=== PATIENT | male | born 1940 | race Caucasian/White ===

== ENCOUNTER 2024-01-16 01:35 | Emergency (ER) | payer MEDICARE, BC, SELFPAY ==
[2024-01-16] VITALS (7 sets, daily range): BP systolic 147–178; BP diastolic 79–99
--- NOTE | 2024-01-16 02:04 | ED.GENMED ---
History of Present Illness
<NASREEN Gunderson (Lenka) - Last Filed: 01/16/24 04:53>
General
Chief Complaint: Fall
Source: patient and ambulance crew
Exam Limitations: dementia
Time Seen by Provider: 01/16/24 01:45
Nursing documentation reviewed up to this point in time: agreed with
History of Present Illness
History of Present Illness:
Pt is a primarily Luxembourger-speaking 83 yo male with PMHx of dementia, HTN, and prostate CA who presents to the ED after being found outside on the ground by police. Per Luxembourger engagement executive, pt states he left the house for a doctor's appointment,
thinking it was mid-afternoon. He claims he tripped over something on the ground, denies hitting head. Unknown length of time pt was on the ground for. Pt denies using a walker or cane at home. He is currently claiming 'everything hurts', worse in
his lower back. Admits to some dizziness on exam, denies any lightheadedness or dizziness prior to fall. States he is able to wiggle his toes and can feel them. Denies visual changes, tinnitus, head or neck pain, chest pain, difficulty breathing,
abdominal pain. No numbness or tingling.
Pt with hx of lower back pain.
Pt lives at home with .
No record of pt being on blood thinners.
Exam limited by patient mental status.
Past History
<Malorie Bahena) NASREEN Light - Last Filed: 01/16/24 04:53>
Past History
ED Past Medical History: Cancer (prostate), HTN and Psychiatric (dementia)
Social History
Personal:
Living: with family
Family History
Family History: Other (noncontributory)
Phy Exam
<NASREEN Gunderson (Lenka) - Last Filed: 01/16/24 04:53>
General Physical Exam
General Presentation: well appearing and no apparent distress
General age: appears stated age
General Skin: warm and dry
General Habitus: normal and elderly
General Mental: alert
General Hydration: appears well hydrated
ENT Exam
ENT Exam: EOMI, TM's normal and pharynx normal
Eye Exam
Eye Exam: EOMI and conjunctiva normal
Cardiovascular Exam
Cardiovascular Exam: regular rate/rhythm, no edema, no gallop and no murmur
Pulmonary Exam
Pulmonary Exam: lungs clear, no respiratory distress, no rales, no rhonchi, no wheezing and no cough
Gastrointestinal Exam
Gastrointestinal Exam: normal bowel sounds, non tender, soft and non distended
Neurological Exam
Neurological Exam: alert, speech normal and confused
Hildreth Coma Scale
Eye Opening: Spontaneous
Verbal Response: Confused
Motor Response: Obeys Commands
GCS Total Score: 14
Psychiatric Exam
Psychiatric Exam: normal mood/affect
<Shayne Monet DO - Last Filed: 01/16/24 03:11>
Hildreth Coma Scale
GCS Total Score: 14
Course
<ST Gunderson (Lenka)PA - Last Filed: 01/16/24 04:53>
Orders/Labs/Results
Orders:
Orders
01/16/24 01:53
CT Head W/o Iv Contrast Urgent
Comment:
Reason For Exam: unwitnessed fall
01/16/24 02:03
CT Cervical Spine W/o Iv Contr Urgent
Comment:
Reason For Exam: unwitnessed fall
Vital Signs
Initial and Last Documented VS:
Initial Vital Signs
Temp Pulse Resp BP Pulse Ox
98.7 F 70 18 178/79 98
01/16/24 01:42 01/16/24 01:42 01/16/24 01:42 01/16/24 01:42 01/16/24 01:42
Last Documented Vital Signs
Temp Pulse Resp BP Pulse Ox
98.7 F 61 13 154/98 95
01/16/24 01:42 01/16/24 02:45 01/16/24 02:45 01/16/24 02:43 01/16/24 02:45
<Shayne Monet DO - Last Filed: 01/16/24 03:11>
Orders/Labs/Results
Orders:
Orders
01/16/24 01:53
CT Head W/o Iv Contrast Urgent
Comment:
Reason For Exam: unwitnessed fall
01/16/24 02:03
CT Cervical Spine W/o Iv Contr Urgent
Comment:
Reason For Exam: unwitnessed fall
Vital Signs
Initial and Last Documented VS:
Initial Vital Signs
Temp Pulse Resp BP Pulse Ox
98.7 F 70 18 178/79 98
01/16/24 01:42 01/16/24 01:42 01/16/24 01:42 01/16/24 01:42 01/16/24 01:42
Last Documented Vital Signs
Temp Pulse Resp BP Pulse Ox
98.7 F 61 13 154/98 95
01/16/24 01:42 01/16/24 02:45 01/16/24 02:45 01/16/24 02:43 01/16/24 02:45
<NASREEN Gunderson (Lenka) - Last Filed: 01/16/24 04:53>
*Critical Care Note
Total Time (30-74mins, 75-104mins- exclusive of procedures): Not Applicable
<DO Say Napoles Last Filed: 01/16/24 03:11>
Update Note
Update Note:
CT HEAD
CT C SPINE
Comparison: 06/11/2022.
IMPRESSION:
CT HEAD
No acute intracranial hemorrhage, mass effect, or midline shift.
No acute calvarial fracture.
Moderate dilatation of the ventricles, out of proportion to the degree of atrophy. This is similar compared to the prior. Correlate for signs of normal pressure hydrocephalus.
CT C SPINE
No acute fracture or alignment abnormality.
Moderate degenerative changes.
Straightening of the cervical spine may be due to positioning or muscle spasm.
ED Attending Note
<NASREEN Gunderson (Lenka) - Last Filed: 01/16/24 04:53>
-
Portions of this chart may have been created with voice recognition software.� Occasional wrong word or��sound alike� substitutions may have occurred due to the inherent limitations of voice recognition software.
<Shayne Monet DO - Last Filed: 01/16/24 03:11>
ED Attending Note
Patient seen and examined by attending physician: Yes
I performed the substantive portion of visit, reviewed & personally made and approve the management plan that is documented in note by myself or WANDER.: Yes
ED Attending Note:
Pleasantly demented 83-year-old Luxembourger speaking male who presents via ambulance after being found outside his house on the ground. Patient does have a history of dementia. Patient awakened thinking that he was late for doctor's appointment and
attempted to go to his car. Patient lives at home with his . He has had this behavior in the past. Patient was seen in conjunction with the PA student. I have reviewed and agree with the history and treatment plan presented. On my
independent physical exam, patient is awake, at baseline. Able to converse fluently in Luxembourger, with a Luxembourger speaking nurse.
Discharge Plan
Departure
Patient Disposition: Home (Routine Discharge)
Date of Disposition: 01/16/24
Time of Disposition: 03:11
Patient with high blood pressure during this ER visit?: Yes
Discharge Problem:
Head injury, Fall
Instructions: Head Injury in Adults (DC), Preventing falls in adults
Prescriptions:
No Action
bicalutamide 50 mg Tablet
50 mg PO UD
Patient Comments:
06/11/21 PER PATIENT DAUGHTER HE WAS TAKING ONE WEEK ON ONE WEEK OFF
Rx Instructions:
06/11/21 PER PATIENT DAUGHTER HE WAS TAKING ONE WEEK ON ONE WEEK OFF
metoprolol succinate 100 mg tablet extended release 24 hr
100 mg PO DAILY
fluticasone propionate 50 mcg/actuation [place],Suspension
1 spray INTRANASAL BIDPRN PRN (Reason: CONGESTION)
potassium citrate 15 mEq tablet extended release
15 meq PO BID
amlodipine 5 mg Tablet
10 mg PO DAILY Qty: 0 0RF
cefdinir 300 mg Capsule
300 mg PO Q12 Qty: 6 0RF
Referrals:
Francisco Queen, DO [Family Provider] -
Interventions
Interventions:
*Risk Screen - Suicide Last Done: 01/16/24 01:42
*General Assessment Last Done: 01/16/24 01:42
*Neglect/Abuse Screening Last Done: 01/16/24 01:42
ED- Fall Risk Assessment Last Done: 01/16/24 01:42
ED-Musculoskeletal Assessment Last Done: 01/16/24 02:00
ED- Neurological Assessment Last Done: 01/16/24 02:00
ED-Skin Assessment Last Done: 01/16/24 02:00
Discharge Date and Time
Print Language: UGANDAN
== END 2024-01-16 05:40 | disposition home or self-care (01) ==
LOC: EMR 01:35
PROVIDERS: EMERGENCY PHYSICIAN Student in an Organized Health Care Education/Training Program; FAMILY PHYSICIAN Family Medicine
DX: S09.90XA Unspecified injury of head, initial encounter (principal); R42 Dizziness and giddiness; W18.00XA Striking against unspecified object with subsequent fall, initial encounter; F03.90 Unspecified dementia, unspecified severity, without behavioral disturbance, psychotic disturbance, mood disturbance, and anxiety; I10 Essential (primary) hypertension; Z85.46 Personal history of malignant neoplasm of prostate
CPT/HCPCS: 99284; 70450; 72125

== ENCOUNTER 2024-02-21 23:48 | Inpatient (IN) | payer MEDICARE, BC, SELFPAY ==
[2024-02-21 19:52] VITALS: BP 174/96
[2024-02-21 19:53] VITALS: BP 174/96
[2024-02-21 20:03] LABS: % Basophils 0.2 % (0-2); % Eosinophils 0.1 % (0-6); % Immature Granulocytes 0.4 % (0-0.5); % Lymphocytes 10.1 % (20.5-51.1); % Monocytes 7.5 % (1.7-9.3); % Neutrophils 81.7 % (42.2-75.2); Absolute Immature Granulocytes 0.1 10^3/uL (0-0.05); Absolute Lymphocytes 1.5 10^3/uL (1.2-3.4); Absolute Monocytes 1.2 10^3/uL (0.1-0.6); Absolute Neutrophils 12.5 10^3/uL (1.4-6.5); Hematocrit 43.4 % (39.0-52.0); Hemoglobin 15.6 g/dL (13.0-18.0); Mean Corp Hgb Conc. 35.9 g/dL (33.0-37.0); Mean Corpuscular Hgb 31.7 pg (27.0-31.0); Mean Corpuscular Volume 88.2 fL (80.0-94.0); Mean Platelet Volume 9.8 fL (7.4-10.4); Nucleated Red Blood Cells % 0 % (-); Platelet Count 161 10^3/uL (130-400); Red Blood Cell Count 4.92 10^6/uL (4.70-6.10); Red Cell Dist. Width 12.3 % (11.5-14.5); White Blood Cell Count 15.3 10^3/uL (4.8-10.8)
[2024-02-21 20:08] LABS: Urine Albumin 1+ (Neg - Trace); Urine Bilirubin Negative (Negative); Urine Character Slightly Cloudy (Clear); Urine Color Yellow; Urine Glucose Negative (Negative); Urine Ketone Trace (Negative); Urine Leukocyte 2+ (Negative); Urine Nitrite Positive (Negative); Urine Occult Blood 4+ (Negative); Urine Urobilinogen Negative (Neg - 1+)
[2024-02-21 20:11] VITALS: BP 174/101
[2024-02-21 20:19] LABS: ALT (SGPT) 14 U/L (0-50); AST (SGOT) 29 U/L (17-59); Albumin 4.1 g/dl (3.5-5.0); Alkaline Phosphatase 76 U/L (38-126); Blood Urea Nitrogen 20 mg/dl (9-20); Calcium 9.3 mg/dl (8.4-10.2); Carbon Dioxide 19 mmol/L (22-30); Chloride 106 mmol/L (98-107); Glucose 137 mg/dl (70-99); Potassium 4.3 mmol/L (3.5-5.1); Sodium 140 mmol/L (135-145); Total Bilirubin 1.4 mg/dl (0.2-1.3); Total Protein 7.3 g/dl (6.3-8.2); eGFR > 60.00
[2024-02-21 20:35] LABS: Urine Bacteria Moderate (Negative); Urine Red Blood Cell 21-25 /HPF (0-2); Urine White Cell >100 /HPF (0-5)
[2024-02-21] MEDS: NSS 1000 IV (21:22)
[2024-02-21] MEDS: MAXIPIME 2000 MG IV (21:27)
[2024-02-21 21:43] LABS: Lactic Acid 1.1 mmol/L (0.7-2.0)
--- NOTE | 2024-02-21 22:16 | ED.GENMED ---
History of Present Illness
General
Chief Complaint: Change in Mental Status
Time Seen by Provider: 02/21/24 21:10
History of Present Illness
History of Present Illness:
83-year-old male with history of hypertension, prostate CA with chronic indwelling Mehta, dementia presenting to the emergency department for change in mental status and increased confusion. Patient limited historian, speaks Swazi, however despite
foreign language interpreter, not answering questions appropriately. Per , patient seemed increasingly confused, and has had a urinary tract infections in the past. Per daughter, a Mehta catheter was exchanged this morning, concern for blockage over the night
with decreased drainage. She notes that patient has overall been less responsive and more confused, more fidgety. No reported fevers. No additional history obtained at this time
Past History
Past History
ED Past Medical History: Cancer (prostate), HTN and Psychiatric (dementia)
Social History
Personal:
Living: with family
Family History
Family History: Other (noncontributory)
Phy Exam
Physical Exam
Physical Exam:
General: Well-appearing, no clinical signs of dehydration, nontoxic and in no acute distress
HEENT: protecting airway
Neck: appears supple
CV: Normal heart rate, regular rhythm, no evidence of cyanosis
Resp: No accessory muscle use, no increased work of breathing, lungs clear to auscultation bilaterally
Abd: Soft, generalized nonfocal tenderness.
Extremities: No deformities, no swelling, no erythema, pulses and sensation intact
Neuro: alert, oriented to self only
: Indwelling Mehta, cloudy yellow urine
Rectal: deferred
Psych: Normal affect
Skin: Intact
Sepsis
Sepsis Screening
Sepsis Assessment: Sepsis
Sepsis Screen
Sepsis Screen: Sepsis
Date: 02/21/24
Time: 23:29
Course
Orders/Labs/Results
Orders:
Orders
02/21/24 19:53
CMP [Comprehensive Metabolic Panel] Urgent
Complete Blood Count/With Diff Urgent
Urinalysis Reflex To Culture Urgent
Date Specimen was Collected: 02/21/24
Time Specimen was Collected: 19:51
Urine Microscopic Reflex Cult Urgent
Urine Culture Urgent
VIKRAM Source: U
Specimen Description:
Date Specimen was Collected: 02/21/24
Time Specimen was Collected: 19:51
02/21/24 21:15
0.9% Sodium Chloride 1000 ml [Nss] 1,000 ml IV BOLUS
02/21/24 21:17
CT Abd/pelvis W Iv Cont Urgent
Comment:
Reason For Exam: generalized pain
Cefepime HCl [Maxipime] 2,000 mg IV NOW STA
02/21/24 21:22
Lactic Acid Urgent
Blood Culture Urgent
VIKRAM Source: Blood/Venous
Specimen Description:
02/21/24 23:25
Blood Culture Urgent
VIKRAM Source: Blood/Venous
Specimen Description:
Metoprolol [Lopressor] 5 mg IV NOW STA
Abnormal Lab Results
02/21/24
19:53
WBC 15.3 H 10^3/uL
(4.8-10.8)
MCH 31.7 H pg
(27.0-31.0)
Abs Immat Gran (auto) 0.1 H 10^3/uL
(0-0.05)
Absolute Neuts (auto) 12.5 H 10^3/uL
(1.4-6.5)
Absolute Monos (auto) 1.2 H 10^3/uL
(0.1-0.6)
Neutrophils % 81.7 H %
(42.2-75.2)
Lymphocytes % 10.1 L %
(20.5-51.1)
Carbon Dioxide 19 L mmol/L
(22-30)
Glucose 137 H mg/dl
(70-99)
Total Bilirubin 1.4 H mg/dl
(0.2-1.3)
Urine Ketones Trace A
(Negative)
Ur Occult Blood Reflex 4+ A
(Negative)
Urine Nitrite (Reflex) Positive A
(Negative)
Leukocyte Esterase Rfl 2+ A
(Negative)
Urine RBC 21-25 A /HPF
(0-2)
Urine WBC (Reflex) >100 A /HPF
(0-5)
Urine Bacteria (Reflex) Moderate A
(Negative)
Urine Albumin (Reflex) 1+ A
(Neg - Trace)
02/21/24 19:53
02/21/24 19:53
Vital Signs
Initial and Last Documented VS:
Initial Vital Signs
Temp Pulse Resp BP Pulse Ox
99.8 F 100 24 174/96 99
02/21/24 19:52 02/21/24 19:52 02/21/24 19:52 02/21/24 19:52 02/21/24 19:52
Last Documented Vital Signs
Temp Pulse Resp BP Pulse Ox
99.8 F 104 24 164/91 93
02/21/24 19:53 02/21/24 23:15 02/21/24 23:15 02/21/24 22:36 02/21/24 23:15
MDM/Problems Addressed
MDM/Problems Addressed:
83-year-old male with history of dementia, prostate cancer with chronic indwelling Mehta, hypertension presenting for altered mental status. Vital signs on arrival significant for high blood pressure and elevated heart rate.
On exam, patient is nontoxic, no acute distress. Given family's concerns and information, concern for possible urinary tract infection. Will obtain laboratory analysis including lactic acid given presenting tachycardia, low-grade temperature.
Will check urinalysis. Given limited historian and generalized tenderness to abdomen, will also obtain CT abdomen pelvis to assess for any additional source of intra-abdominal pathology/infection.
21:40 - Patient with leukocytosis, however normal lactic acid. No hypotension, without concern for severe sepsis or septic shock. No indication for full 30 cc/kg fluid bolus. Urine does show evidence of action, Mehta catheter change this morning.
Will start antibiotics. Urine culture and blood culture sent. Pending CT imaging.
23:10 -CT shows a 3 mm stone at the right UVJ without significant hydronephrosis, however there is some perinephric stranding. Differential consideration is infected renal stone. Urology made aware. Plan for admission.
*Critical Care Note
Total Time (30-74mins, 75-104mins- exclusive of procedures): Not Applicable
ED Attending Note
-
Portions of this chart may have been created with voice recognition software.� Occasional wrong word or��sound alike� substitutions may have occurred due to the inherent limitations of voice recognition software.
Discharge Plan
Departure
Patient Disposition: Admit
Date of Disposition: 02/21/24
Time of Disposition: 23:18
Presentation/result/management discussed w/ accepting MD/DO: Hospitalist
Condition: Fair
Discharge Problem:
UTI (urinary tract infection), Nephrolithiasis, Acute pyelonephritis
Prescriptions:
No Action
bicalutamide 50 mg Tablet
50 mg PO Q48H
Patient Comments:
06/11/21 PER PATIENT DAUGHTER HE WAS TAKING ONE WEEK ON ONE WEEK OFF
metoprolol succinate 100 mg tablet extended release 24 hr
100 mg PO DAILY
fluticasone propionate 50 mcg/actuation [place],Suspension
1 spray INTRANASAL BID
potassium citrate 15 mEq tablet extended release
15 meq PO BID@0800,1700
quetiapine 25 mg tablet
25 mg PO HS
B Complex Tablet Extended Release
1 tab PO Q48H
donepezil 5 mg tablet
5 mg PO HS
famotidine 20 mg tablet
20 mg PO DAILYPRN PRN (Reason: gi)
mirabegron [Myrbetriq] 25 mg Tablet Extended Release 24 Hr
25 mg PO DAILY
calcium carb-mag ox-zinc gluc 333-133-5 mg Tablet
1 tab PO Q48H
Referrals:
UNKNOWN - PT DOES,NOT KNOW [Family Provider] -
Interventions
Interventions:
*Risk Screen - Suicide Last Done: 02/21/24 19:52
*General Assessment Last Done: 02/21/24 19:52
*Neglect/Abuse Screening Last Done: 02/21/24 19:52
*ED COVID-19 Vaccine History Last Done: 02/21/24 19:52
ED- Pulmonary Assessment Last Done: 02/21/24 20:00
ED-Psychological Assessment Last Done: 02/21/24 20:52
ED- Neurological Assessment Last Done: 02/21/24 20:06
Discharge Date and Time
Print Language: ECUADOREAN
[2024-02-21 22:36] VITALS: BP 164/91
[2024-02-21 23:23] VITALS: BP 165/115
--- NOTE | 2024-02-21 23:27 | HPS.HSE ---
Family Physician
-
Family Physician: NOT KNOW UNKNOWN - PT DOES
Chief Complaint
-
AMS
History of Present Illness
83M dementia and prostate CA history with chronic indwelling ty coming in with change in mental status per family.
Reports history of frequent UTIs
Medical History
Past Medical History
Past Medical History: Reports Dementia and HTN
Past Surgical History: Reports None
Social History
Tobacco: Non-smoker
Alcohol: None
Personal:
Living: With Family
Family History
Family History: Not pertinent
Allergies / Home Medications
Allergies reflects when Allergies were last updated in [facility].
Home Medications with original date entered in [facility]
Allergy/Medication List:
Allergies
Allergy/AdvReac Type Severity Reaction Status Date / Time
No Known Allergies Allergy Verified 02/21/24 19:59
Home Medications
bicalutamide 50 mg tablet 50 mg PO Q48H 06/11/22
fluticasone propionate 50 mcg/actuation nasal spray,suspension 1 spray intranasal BID 06/11/22
metoprolol succinate 100 mg tablet,extended release 24 hr 100 mg PO DAILY Blood pressure 06/11/22
potassium citrate 15 mEq (1,620 mg) tablet,extended release 15 meq PO BID@0800,1700 Electrolyte Repletion 06/11/22
calcium carbonate 333 mg-magnesium oxide 133 mg-zinc gluc 5 mg tablet 1 tab PO Q48H 02/21/24
donepezil 5 mg tablet 5 mg PO HS 02/21/24
famotidine 20 mg tablet 20 mg PO DAILYPRN PRN gi 02/21/24
mirabegron 25 mg tablet,extended release 24 hr (Myrbetriq) 25 mg PO DAILY 02/21/24
quetiapine 25 mg tablet 25 mg PO HS 02/21/24
vitamin B complex 1 tab PO Q48H 02/21/24
Review of Systems
-
Constitutional: Reports No Symptoms
EENT: Reports No Symptoms
Respiratory: Reports No Symptoms
Cardiac: Reports No Symptoms
Abdomen/GI: Reports No Symptoms
: Reports No Symptoms
Musculoskeletal: Reports Other (right lower back pain)
Skin: Reports No Symptoms
Neurological: Reports See HPI
Endocrine: Reports No Symptoms
Hematologic/Lymphatic: Reports No Symptoms
Psych: Reports No Symptoms
Physical Exam
Vital Signs
Vital Signs
Temp Pulse Resp BP Pulse Ox
99.8 F 104 24 164/91 93
02/21/24 19:53 02/21/24 23:15 02/21/24 23:15 02/21/24 22:36 02/21/24 23:15
Physical Exam
General: Other (lethargic ); No Conversant
HEENT: NormoCephalic, Moist mucous membranes (dry) and Atraumatic
Respiratory: Clear
Cardiac: S1/S2, Regular Rhythm and Tachycardia; No Murmur or Rub
GI: Soft, Non Tender, Non Distended and Normal Bowel Sounds; No Organomegaly
Rectal: Deferred by Provider
Musculoskeletal: No Clubbing, No Cyanosis and No Edema
Skin: Dry; No Rash
Neuro: Nonfocal/grossly intact; No Alert (lethargic )
Psych: Apparent Dementia (lethargic )
Laboratory Results
-
02/21/24 19:53
02/21/24 19:53
Laboratory Results
Lactic Acid 1.1 mmol/L (0.7-2.0) 02/21/24 21:22
Total Bilirubin 1.4 mg/dl (0.2-1.3) H 02/21/24 19:53
AST 29 U/L (17-59) 02/21/24 19:53
ALT 14 U/L (0-50) 02/21/24 19:53
Alkaline Phosphatase 76 U/L (38-126) 02/21/24 19:53
Data Reviewed
-
CT Scan: Report Reviewed by me
Lab Data: Labs Reviewed by me
Old Records: Reviewed
Impression/Plan
-
:
Data
WCC 15.3
CO2 19
eGFR > 60
BG 137
POS UA for UTI
CT AP W Iv Cont
1).There is a 3 mm calculus at the intramural portion of the right ureterovesical junction without significant associated right hydronephrosis or right hydroureter
2). There is a 2 cm calculus at the right renal pelvis without associated right hydronephrosis.
3). There is mild-moderate cortical volume loss of the right kidney
4). There is mild left and moderate right perinephric edema
5). There are left-sided renal cysts measuring up to 2 cm
6). There are multiple calculi in the dependent portion of the urinary bladder measuring up to 4 mm
Last hospitalist admission:
DATE OF ADMISSION: 06/11/2022 - DATE OF DISCHARGE: 06/17/2022
DISCHARGE DIAGNOSIS:
1. Toxic metabolic encephalopathy.
2. Urinary tract infection.
3. Underlying dementia.
4. Ambulatory dysfunction.
ASSESSMENT & PLAN
Suspect CAUTI plis infected stone - complicated UTI : Preserved normotensive , tachycardic
Clinical sepsis
AMS/ lethargy due to acute hypoactive infective encephalopathy 2/2 to infected 2 cm calculus at the right renal pelvis
No right hydronephrosis.
Chr indwelling F Cath
HX Prostate CA
- cont, IV CFP
- UCx and BCx sent
- NPO and IVF
- PRN analgesia
- Urology consulted
HX Dementia
At risk for agitation
- IV Haldol PRN for agitation
DVT Px: SCD
Code: Full code
IP TLM
[2024-02-21] MEDS: LOPRESSOR 5 MG IV (23:33)
[2024-02-21] MEDS: OFIRMEV 100 IV (23:42)
[2024-02-22] VITALS (9 sets, daily range): BP systolic 103–150; BP diastolic 60–88; PULSE 80; BMI 25.7; BMI 25.6
[2024-02-22] MEDS: NSS 1000 IV ×2 (00:20→08:36)
[2024-02-22] MEDS: COMPAZINE 5 MG IV (00:37)
--- NOTE | 2024-02-22 04:10 | PTCARENOTE ---
Pt admitted to room 2127 from ED via stretcher, pt primary language is Kinyarwanda, does not understand Eritrean or answer card boxer's questions d/t his dementia?, no family member at bedside at the time of admission. Bed alarm in place and med sitter
provided for pt. call christie within reach.
--- NOTE | 2024-02-22 04:20 | DOWNTIME ---
There was a [employer] Client [employer] Knife [employer]immer Downtime on 02/22/2024 from 0100 to 02/22/2024 at 0300. Downtime documentation of patient's care, including medication administrations, has been reconciled in the electronic record per guidelines. Refer to the
patient's paper chart under the miscellaneous tab to see printed paper medication records and downtime forms.
[2024-02-22 06:16] LABS: Hematocrit 37.2 % (39.0-52.0); Hemoglobin 13.5 g/dL (13.0-18.0); Mean Corp Hgb Conc. 36.3 g/dL (33.0-37.0); Mean Corpuscular Hgb 31.3 pg (27.0-31.0); Mean Corpuscular Volume 86.3 fL (80.0-94.0); Mean Platelet Volume 9.9 fL (7.4-10.4); Platelet Count 131 10^3/uL (130-400); Red Blood Cell Count 4.31 10^6/uL (4.70-6.10); Red Cell Dist. Width 12.5 % (11.5-14.5); White Blood Cell Count 20.7 10^3/uL (4.8-10.8)
--- NOTE | 2024-02-22 06:35 | CON.MD ---
Addendum entered and electronically signed by Viktor Fischer Jr., MD 02/22/24 08:56:
spoke to daughter
she is declining any intervention at this time- wants to 'wait and see'
explained the risks of this with stone/infx and that when intervention is desired- he may not be stable enough to proceed
she understands- OR cancelled for today
Original Note:
Consultation - Medical
-
see dictated note
hx obtained from chart- pt non-communicative
pt followed by dr shabazz
chronic urinary retention/recurrent UTI's
known large right renal stone
presumptive prostate ca- based on psa elevation- treatment hormonal
brought in for AMS and cath not draining
ua appeared infected- had CT showing large paritally obstructing right renal pelvis stone- bladder stones and possible right uvj stone
overnight- several spiking temps- wbc up to 20k
pt currently af- stable- more awake and alert
plan
will discuss with family and dr shabazz
tentative plan for OR for right ureteral stent today
[2024-02-22 06:36] LABS: Blood Urea Nitrogen 21 mg/dl (9-20); Calcium 8.8 mg/dl (8.4-10.2); Carbon Dioxide 16 mmol/L (22-30); Chloride 109 mmol/L (98-107); Estimated Creatinine Clearance 40 ml/min; Glucose 132 mg/dl (70-99); Sodium 140 mmol/L (135-145); eGFR 54.85
--- NOTE | 2024-02-22 08:22 | VNURNOTE ---
Chart reviewed. Patient is current with [facility] nursing. Will continue to follow hospital course and DC plans.
[2024-02-22] MEDS: TOPROL XL 100 MG PO (08:34)
[2024-02-22] MEDS: MYRBETRIQ EXTENDED RELEASE 25 MG PO (08:35)
[2024-02-22] MEDS: UROCIT-K 10 MEQ PO ×2 (08:35→16:20)
[2024-02-22] MEDS: STERILE WATER FOR INJECTION 10 ML IV ×2 (09:55→21:39)
[2024-02-22] MEDS: MAXIPIME 2000 MG IV ×2 (09:55→21:39)
--- NOTE | 2024-02-22 13:28 | PTCARENOTE ---
Positive blood culture in progress. Forwarded to Dr. Sterling [id number] via tiger text. placed in chart
--- NOTE | 2024-02-22 14:00 | W.PN.HOSP.TC ---
Today's Communication/Plan
-
IV antibiotics
IV fluids per
Follow cultures
Assessment / Plan
Assessment / Plan
Impression:
Complicated catheter associated urinary tract infection.
Clinical sepsis.
Gram-negative bacteremia
BPH with chronic bladder outlet obstruction and indwelling catheter
Presumed prostate carcinoma on Casodex prior to presentation
Toxic metabolic encephalopathy/G secondary to above
Essential hypertension
Dementia senile type
Chronic ambulatory dysfunction
Plan:
Complicated catheter associated urine tract infection in patient with indwelling catheter.
Gram-negative bacteremia.
Urine cultures pending.
Mehta catheter exchange at the day of presentation.
CT scan with 3 mm calculus at the intramural portion of the right ureterovesical junction without significant associated right hydronephrosis or right hydroureter, 2 cm calculus at the right renal pelvis without associated hydronephrosis
Initiated on empiric antibiotics cefepime.
Urology input appreciated with suggestion of cystoscopy and stent, although patient's daughter declined procedure at this point requesting conservative treatment including antibiotics and fluids.
Monitor closely while on cefepime.
Continue IV fluids.
Follow final blood and urine cultures.
Essential hypertension
Continue metoprolol monitoring for hypotension
Dementia senile type
No evidence for agitation or behavioral disturbances.
Supportive care.
Frequent reorientation
Avoid sedation.
Continue Aricept, Seroquel
Full code
DVT prophylaxis heparin
Anticipated Discharge: > 48 hours
Subjective/Interval History
-
Date of Service: February 22, 2024
Objective Data
-
Labs:
Laboratory Results
02/22/24
05:53
WBC 20.7 H
Hgb 13.5
Hct 37.2 L
Plt Count 131
Sodium 140
Potassium 4.0
Chloride 109 H
Carbon Dioxide 16 L
BUN 21 H
Creatinine 1.3
Glucose 132 H
Calcium 8.8
Vital Signs:
Vital Signs
Temp Pulse Resp BP Pulse Ox
98.8 F 96 16 138/79 98
02/22/24 13:53 02/22/24 11:05 02/22/24 11:05 02/22/24 11:05 02/22/24 11:05
I&O
02/21/24 02/22/24 02/23/24
06:59 06:59 06:59
Intake Total 800 / 800
Balance 800 / 800
Physical Exam
-
General: Well Developed and No Apparent Distress
HEENT: Normocephalic, Atraumatic and Moist Mucous Membranes
Respiratory: Clear to Auscultation
Cardiac: Regular Rhythm and S1/S2; Negative Murmur, Rub or Gallop
GI: Soft, Nontender, Nondistended and Normal Bowel Sounds; Negative Organomegaly
Rectal: Deferred by Provider
Musculoskeletal: No Clubbing, No Cyanosis and No Edema
Skin: Negative Rash
Neuro: Awake, Alert, Oriented and Nonfocal/Grossly Intact
--- NOTE | 2024-02-22 16:29 | CM ---
TC to daughter Shaye for IA.
Patient lives with spouse in a 1 story home with 4 steps to enter.
Patient does not use assistive device inside the house, does use a walker outside.
Multiple falls, chronic Mehta catheter.
Patient speaks Latvian, confused.
Patient is current with [facility], daughter agreeable to resume.
Patient has been in [facility] in the past, daughter does ot want skilled rehab.
PCP; Dr Queen
Pharmacy: [facility]
[2024-02-22] MEDS: HEPARIN 5000 UNITS SC (20:04)
[2024-02-22] MEDS: ARICEPT 5 MG PO (21:39)
[2024-02-22] MEDS: SEROQUEL 25 MG PO (21:39)
[2024-02-23] MEDS: NSS 1000 IV ×3 (00:03→22:41)
[2024-02-23 02:54] VITALS: BP 163/85
[2024-02-23 07:01] VITALS: BMI 26.2
[2024-02-23 07:12] LABS: % Basophils 0.3 % (0-2); % Eosinophils 0.4 % (0-6); % Immature Granulocytes 0.5 % (0-0.5); % Lymphocytes 18.2 % (20.5-51.1); % Monocytes 7.3 % (1.7-9.3); % Neutrophils 73.3 % (42.2-75.2); Absolute Immature Granulocytes 0.1 10^3/uL (0-0.05); Absolute Monocytes 0.8 10^3/uL (0.1-0.6); Absolute Neutrophils 7.9 10^3/uL (1.4-6.5); Hematocrit 32.6 % (39.0-52.0); Hemoglobin 11.8 g/dL (13.0-18.0); Mean Corp Hgb Conc. 36.2 g/dL (33.0-37.0); Mean Corpuscular Hgb 31.9 pg (27.0-31.0); Mean Corpuscular Volume 88.1 fL (80.0-94.0); Mean Platelet Volume 10.9 fL (7.4-10.4); Nucleated Red Blood Cells % 0 % (-); Platelet Count 105 10^3/uL (130-400); Red Cell Dist. Width 12.8 % (11.5-14.5); White Blood Cell Count 10.8 10^3/uL (4.8-10.8)
[2024-02-23 07:42] LABS: Blood Urea Nitrogen 24 mg/dl (9-20); Calcium 8.1 mg/dl (8.4-10.2); Carbon Dioxide 15 mmol/L (22-30); Chloride 111 mmol/L (98-107); Estimated Creatinine Clearance 43 ml/min; Glucose 111 mg/dl (70-99); Potassium 3.5 mmol/L (3.5-5.1); Sodium 141 mmol/L (135-145); eGFR > 60.00
[2024-02-23 07:49] VITALS: BP 155/88
[2024-02-23] MEDS: MYRBETRIQ EXTENDED RELEASE PO (08:14)
[2024-02-23] MEDS: CASODEX 50 MG PO (08:16)
[2024-02-23] MEDS: HEPARIN 5000 UNITS SC ×2 (08:16→20:33)
[2024-02-23] MEDS: UROCIT-K PO ×4 (08:16→16:09)
[2024-02-23] MEDS: TOPROL XL 100 MG PO (08:16)
--- NOTE | 2024-02-23 08:46 | PTCARENOTE ---
speech eval and treat placed. Doctor Hallie notified. Pt struggled with am pills.
--- NOTE | 2024-02-23 09:00 | PTCARENOTE ---
Reached out to Dr. Fischer in Urology. Pt on list for OR today. Breakfast will not be given to patient. Dr. Warner to speak with daughter.
[2024-02-23] MEDS: MAXIPIME 2000 MG IV (09:11)
[2024-02-23] MEDS: STERILE WATER FOR INJECTION 10 ML IV (09:11)
--- NOTE | 2024-02-23 10:11 | W.PN.SURGUPD ---
Surgical Update
Surgical Update
Probable complicated UTI following chronic Mehta catheter exchange: Enterobacter in blood
Longstanding large right UPJ stone
---
Patient is responding to medical management
Low grade fever
Leukocytosis has resolved
No right flank pain, nausea or gross hematuria
No right perinephric stranding on CT scan
---
Discussed management with daughter
Will treat medically and not intervene with right renal stone at this time
Will reconsider if patient has multiple hospitalizations for the same issue in the coming months
[2024-02-23 11:50] VITALS: BP 132/69
--- NOTE | 2024-02-23 12:54 | PTOTSP ---
Speech Therapy Swallowing Assessment
Oral/pharyngeal swallow deemed within functional limits without overt signs of aspiration. Suspect dementia combined with acute illness is causing fluctuations in function and may be responsible for difficulty with med pass this am.
Recommend
1. Continue with regular solids and thin liquids
2. Pills whole in applesauce - especially if he has difficulty with future med passes
3. Fully upright with meals
4. Assist with feeding
ST will follow briefly to ensure diet tolerance and determine need for diet modifications and/or instrumental testing.
--- NOTE | 2024-02-23 13:29 | CM ---
Met with patient and daughter Shaye. IMM explained & signed. In chart
Discussed d/c planning
Would like JF with [facility]
Ambulance forms on chart.
PLAN: Discharge when stable to home with [facility].
--- NOTE | 2024-02-23 14:50 | CON.ID ---
Consultation
-
Date/Time Consultation Requested: 02/23/24 11:03
Date/Time Consultation Performed: 02/23/24 14:51
Requesting Provider: Dr Sterling
Performing Provider: Dr Catalan
Reason for Consultation: enterobacter uti
Chief Complaint / Past History
Chief Complaint
AMS
History of Present Illness
Mr Mattson is an 83 year old male with history of prostate cancer with chronic ty presented here on 02/20 for AMS. 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
Since arrival here tmax 102.1, bp stbale, wbc initially 15 and peaked at 20 now 10.8, hgb 11.8, plt 105, no current L shift, cr 1.2 from baseline of around 1.0, lactic acid 1.1, ua with >100 wbc/hpf, CT a/p with IV contrast: 2 and 3 cm uvj stones,
mild bilateral perinephric edema, urine culture 100 K GNR and blood culture enterobacter, currently on cefepime, ID is consulted for assistance with management.
Past History
Additional Past Medical History:
Dementia and HTN
Past Surgical History: None
Allergy History:
No Known Allergies Allergy (Verified 02/21/24 19:59)
Medications Reviewed: Yes
Social History
Tobacco: Non-Smoker
Alcohol: None
Drug: None
Family History
Family History: Not Pertinent
Review of Systems
Review of Systems
unable to obtain due to the condition of the patient
Vital Signs
Temp Pulse Resp BP Pulse Ox
99.6 F 78 16 132/69 93
02/23/24 11:50 02/23/24 11:50 02/23/24 11:50 02/23/24 11:50 02/23/24 11:50
Physical Exam
Physical Exam
Constitutional: No Acute Distress
Cardiovascular: Regular Rate and S1/S2; Negative Murmur or Rub
Pulmonary: Clear and Symmetric; Negative Wheezes, Rales or Rhonchi
Gastrointestinal: Soft, Non Tender, Non Distended and Normal Bowel Sounds
Genito-Urinary: Negative Suprapubic Tenderness or CVA Tenderness
Skin: Warm and Dry; Negative Rash or Jaundice
Lab / Diagnostic Study Results
02/23/24 06:13
02/23/24 06:13
Abs Immat Gran (auto) 0.1 10^3/uL (0-0.05) H 02/23/24 06:13
Absolute Neuts (auto) 7.9 10^3/uL (1.4-6.5) H 02/23/24 06:13
Absolute Lymphs (auto) 2.0 10^3/uL (1.2-3.4) 02/23/24 06:13
Absolute Monos (auto) 0.8 10^3/uL (0.1-0.6) H 02/23/24 06:13
Absolute Basos (auto) 0.0 10^3/uL (0-0.2) 02/23/24 06:13
Immature Gran % 0.5 % (0-0.5) 02/23/24 06:13
Neutrophils % 73.3 % (42.2-75.2) 02/23/24 06:13
Lymphocytes % 18.2 % (20.5-51.1) L 02/23/24 06:13
Monocytes % 7.3 % (1.7-9.3) 02/23/24 06:13
Eosinophils % 0.4 % (0-6) 02/23/24 06:13
Basophils % 0.3 % (0-2) 02/23/24 06:13
Lactic Acid Cancelled 02/22/24 17:15
Microbiology Results
Micro:
02/23/24 13:48 Blood Culture - Pending
Blood/Venous
02/21/24 21:22 Blood Culture - Preliminary
Blood/Venous Enterobacter species
Gram Stain - Preliminary
02/21/24 19:53 Urine Culture - Preliminary
Urine Gram negative bacilli
02/21/24 23:54 Blood Culture - Preliminary
Blood/Venous No Growth in 24 hours- Final report to follow
Assessment / Plan
Enterobacter UTI
- no need for repeat blood cultures for gram negative bacteremia
- follow for sensitivities
- switched to zosyn given isolate and persistent confusion - deescalate to orals when febrile
- follow clinically
[2024-02-23 15:10] VITALS: BP 147/45
[2024-02-23] MEDS: ZOSYN 50 IV ×2 (16:02→22:41)
--- NOTE | 2024-02-23 17:03 | W.PN.HOSP.TC ---
Today's Communication/Plan
-
Continue antibiotics
ID consultation
Assessment / Plan
Assessment / Plan
Impression:
Complicated catheter associated urinary tract infection.
Clinical sepsis.
Gram-negative bacteremia/Enterobacter
BPH with chronic bladder outlet obstruction and indwelling catheter
Presumed prostate carcinoma on Casodex prior to presentation
Toxic metabolic encephalopathy/G secondary to above
Essential hypertension
Dementia senile type
Chronic ambulatory dysfunction
Plan:
Complicated catheter associated urine tract infection in patient with indwelling catheter.
Gram-negative bacteremia. Enterobacter
Final urine cultures pending
Mehta catheter exchange at the day of presentation.
CT scan with 3 mm calculus at the intramural portion of the right ureterovesical junction without significant associated right hydronephrosis or right hydroureter, 2 cm calculus at the right renal pelvis without associated hydronephrosis
Initiated on empiric antibiotics cefepime.
Urology input appreciated with suggestion of cystoscopy and stent, although patient's daughter declined procedure at this point requesting conservative treatment including antibiotics and fluids.
ID consult appreciated
Antibiotic changed to Zosyn.
Follow clinically over the next 24 hours with plan to transition to oral regimen upon discharge tentatively on 02/23
Essential hypertension
Continue metoprolol monitoring for hypotension
Dementia senile type
No evidence for agitation or behavioral disturbances.
Supportive care.
Frequent reorientation
Avoid sedation.
Continue Aricept, Seroquel
Full code
DVT prophylaxis heparin
Anticipated Discharge: 24 - 48 hours
Subjective/Interval History
-
Date of Service: February 23, 2024
Objective Data
-
Labs:
Laboratory Results
02/23/24
06:13
WBC 10.8
Hgb 11.8 L
Hct 32.6 L
Plt Count 105 L
Sodium 141
Potassium 3.5
Chloride 111 H
Carbon Dioxide 15 L
BUN 24 H
Creatinine 1.2
Glucose 111 H
Calcium 8.1 L
Vital Signs:
Vital Signs
Temp Pulse Resp BP Pulse Ox
99.1 F 80 16 147/45 92
02/23/24 15:10 02/23/24 15:10 02/23/24 15:10 02/23/24 15:10 02/23/24 15:10
I&O
02/22/24 02/23/24 02/24/24
06:59 06:59 06:59
Intake Total 800 / 800
Output Total 600 / 600
Balance 800 / 800 -600 / -600
Physical Exam
-
General: Well Developed and No Apparent Distress
HEENT: Normocephalic, Atraumatic and Moist Mucous Membranes
Respiratory: Clear to Auscultation
Cardiac: Regular Rhythm and S1/S2; Negative Murmur, Rub or Gallop
GI: Soft, Nontender, Nondistended and Normal Bowel Sounds; Negative Organomegaly
Rectal: Deferred by Provider
Musculoskeletal: No Clubbing, No Cyanosis and No Edema
Skin: Negative Rash
Neuro: Awake, Alert, Oriented and Nonfocal/Grossly Intact
[2024-02-23 19:42] VITALS: BP 144/74
[2024-02-23] MEDS: SEROQUEL 25 MG PO (20:33)
[2024-02-23] MEDS: ARICEPT 5 MG PO (20:33)
[2024-02-23 23:50] VITALS: BP 170/97
[2024-02-24] MEDS: APRESOLINE 5 MG IV (00:45)
--- NOTE | 2024-02-24 00:47 | PTCARENOTE ---
Pt's BP at 23:50 was 170/97. Reached out to house provider. Orders received for 5mg hydralazine q4h PRN. Hydralazine administered, see AUG. Will reassess BP for efficacy.
[2024-02-24 01:57] VITALS: BP 152/94
[2024-02-24] MEDS: ZOSYN 50 IV (03:46)
[2024-02-24 03:54] VITALS: BP 165/98
[2024-02-24 07:05] VITALS: BP 167/99
[2024-02-24] MEDS: HEPARIN 5000 UNITS SC (08:44)
[2024-02-24] MEDS: MYRBETRIQ EXTENDED RELEASE 25 MG PO (08:44)
[2024-02-24] MEDS: TOPROL XL 100 MG PO (08:44)
[2024-02-24] MEDS: UROCIT-K 10 MEQ PO (08:46)
--- NOTE | 2024-02-24 09:40 | W.PN.SURGUPD ---
Surgical Update
Surgical Update
Afebrile
Comfortable
No right flank pain
No catheter bother
---
Catheter associated Enterobacter UTI
Right UPJ stone w/o hydronephrosis or perinephric stranding
---
Cleared for discharge from standpoint
Resume regular Q 4 week catheter change
--- NOTE | 2024-02-24 09:52 | W.PN.ID1 ---
Date of Service
Date of Service: February 24, 2024
Today's Communication
Transition to doxycycline 100mg po bid through 03/04/24.
Assessment / Plan
Complicated Enterobacter UTI
Chronic ty
Nephrolithiasis without obstruction
- fever resolved
-leukocytosis resolved
- repeat bcx neg
-Transition zosyn to doxycycline 100mg po bid.
Chief Complaint
-: UTI and Bacteremia
Subjective / Review of Systems
No complants.
Vital Signs / Physical Exam
Vital Signs
Vital Signs
Temp Pulse Resp BP Pulse Ox
97.9 F 87 18 167/99 94
02/24/24 07:05 02/24/24 07:05 02/24/24 07:05 02/24/24 07:05 02/24/24 07:05
Physical Exam
Constitutional: No Acute Distress
Gastrointestinal: Soft, Non Tender and Non Distended
Genito-Urinary: Ty and Clear Urine; Negative CVA Tenderness
Neurological: Awake
Objective Data
Lab Data
Lab Results
02/23/24 06:13
02/23/24 06:13
Estimated Creat Clear 43 ml/min 02/23/24 06:13
Lactic Acid Cancelled 02/22/24 17:15
Total Bilirubin 1.4 mg/dl (0.2-1.3) H 02/21/24 19:53
AST 29 U/L (17-59) 02/21/24 19:53
ALT 14 U/L (0-50) 02/21/24 19:53
Alkaline Phosphatase 76 U/L (38-126) 02/21/24 19:53
Most recent labs reviewed.
Micro Results:
02/21/24 19:53 Urine Culture - Preliminary
Urine Gram negative bacilli
02/21/24 21:22 Blood Culture - Preliminary
Blood/Venous Enterobacter cloacae
Gram Stain - Preliminary
02/21/24 23:54 Blood Culture - Preliminary
Blood/Venous No Growth in 48 hours- Final report to follow
02/23/24 13:48 Blood Culture - Pending
Blood/Venous
[2024-02-24] MEDS: STERILE WATER FOR INJECTION 10 ML IV (10:23)
[2024-02-24] MEDS: NSS 1000 IV (10:23)
[2024-02-24] MEDS: VIBRAMYCIN 100 MG PO (10:23)
--- NOTE | 2024-02-24 10:52 | W.DS.TRANS ---
DC Summary - Charge Poster
-
Discharge Instructions:
Discharge Diagnosis/Procedures Complicated catheter associated urinary tract
infection.
Clinical sepsis.
Gram-negative bacteremia/Enterobacter
BPH with chronic bladder outlet obstruction and
indwelling catheter
Presumed prostate carcinoma on Casodex prior to
presentation
Toxic metabolic encephalopathy/G secondary to
above
Essential hypertension
Dementia senile type
Chronic ambulatory dysfunction
Diet Regular
Instructions:
Stand-Alone Forms:
Changes to Home Medications: Yes
Discharge Medications:
DC Medications w/original date entered in [employer]
bicalutamide 50 mg tablet 50 mg PO Q48H Cancer 06/11/22
fluticasone propionate 50 mcg/actuation nasal spray,suspension 1 spray intranasal BID Allergies 06/11/22
metoprolol succinate 100 mg tablet,extended release 24 hr 100 mg PO DAILY Blood pressure 06/11/22
potassium citrate 15 mEq (1,620 mg) tablet,extended release 15 meq PO BID@0800,1700 Electrolyte Repletion 06/11/22
calcium carbonate 333 mg-magnesium oxide 133 mg-zinc gluc 5 mg tablet 1 tab PO Q48H Supplement 02/21/24
donepezil 5 mg tablet 5 mg PO HS ALZHEIMER 02/21/24
famotidine 20 mg tablet 20 mg PO DAILYPRN PRN gi 02/21/24
mirabegron 25 mg tablet,extended release 24 hr (Myrbetriq) 25 mg PO DAILY OVERACTIVE BLADDER 02/21/24
quetiapine 25 mg tablet 25 mg PO HS 02/21/24
vitamin B complex 1 tab PO Q48H Supplement 02/21/24
doxycycline hyclate 100 mg capsule 100 mg PO Q12 #20 caps 02/24/24
Home Medication Changes
Antibiotics through 03/04/24
Pending Results: No
[2024-02-24 11:00] VITALS: BP 145/80
--- NOTE | 2024-02-24 11:11 | CM ---
Addendum entered by Milly Laura 02/24/24 12:27:
Daughter updated via phone message about time for ambulance now 1:15 pm.
Original Note:
Patient for discharge home today. Patient for [facility], liaison made aware. Physician spoke with patient daughter and per chart review patient IMM completed 02/23/24. CM will confirm forms in place for discharge transportation and follow for any
further discharge planning needs.
Plan; home with [facility] to follow
== END 2024-02-24 14:00 | disposition home health service (06) | DRG 698 ==
LOC: 2 NORTH 23:48
PROVIDERS: Emergency Medicine; Physician Assistant Medical; ADMITTING PHYSICIAN Internal Medicine; ATTENDING PHYSICIAN Internal Medicine; CONSULT PHYSICIAN Specialist; EMERGENCY PHYSICIAN Student in an Organized Health Care Education/Training Program; OTHER PHYSICIAN Student in an Organized Health Care Education/Training Program
DX: T83.511A Infection and inflammatory reaction due to indwelling urethral catheter, initial encounter (principal); G92.8 Other toxic encephalopathy; R78.81 Bacteremia; N20.2 Calculus of kidney with calculus of ureter; C61 Malignant neoplasm of prostate; F03.90 Unspecified dementia, unspecified severity, without behavioral disturbance, psychotic disturbance, mood disturbance, and anxiety; I12.9 Hypertensive chronic kidney disease with stage 1 through stage 4 chronic kidney disease, or unspecified chronic kidney disease; N18.9 Chronic kidney disease, unspecified; B96.89 Other specified bacterial agents as the cause of diseases classified elsewhere; N40.1 Benign prostatic hyperplasia with lower urinary tract symptoms; N32.0 Bladder-neck obstruction; R33.8 Other retention of urine; R26.2 Difficulty in walking, not elsewhere classified; Y84.6 Urinary catheterization as the cause of abnormal reaction of the patient, or of later complication, without mention of misadventure at the time of the procedure; Z96.0 Presence of urogenital implants; Z79.899 Other long term (current) drug therapy; Z87.440 Personal history of urinary (tract) infections
CPT/HCPCS: 74177; 80048; 80053; 81003; 81015; 83605; 83735; 85025; 85027; 87040; 87071; 87077; 87086; 87149; 87186; 87205; 92526; 92610; 93005; 96360; 97163; 97167; 99285; Q9967

== ENCOUNTER 2024-04-03 20:10 | Emergency (ER) | payer MEDICARE, BC, SELFPAY ==
[2024-04-03 20:15] VITALS: BP 138/107
[2024-04-03 20:24] VITALS: BP 182/89
[2024-04-03 22:00] VITALS: BP 183/86
[2024-04-03 22:55] LABS: Urine Albumin Trace (Neg - Trace); Urine Bilirubin Negative (Negative); Urine Character Clear (Clear); Urine Color Yellow; Urine Glucose Negative (Negative); Urine Ketone Negative (Negative); Urine Leukocyte 2+ (Negative); Urine Nitrite Positive (Negative); Urine Occult Blood 1+ (Negative); Urine Urobilinogen Negative (Neg - 1+)
[2024-04-03 23:00] VITALS: BP 171/86
[2024-04-03 23:06] LABS: Urine Bacteria Moderate (Negative); Urine Squamous Cell 0-2 /LPF (Few); Urine White Cell 80-90 /HPF (0-5)
[2024-04-03] MEDS: TOBREX 0.3% EYE DROPS 1 DROP OPHTH (23:14)
[2024-04-03] MEDS: AUGMENTIN 875 MG/125 MG 1 TABLET PO (23:35)
--- NOTE | 2024-04-03 23:35 | ED.GENMED ---
History of Present Illness
General
Chief Complaint: Fall
Source: ambulance crew
Exam Limitations: none
Time Seen by Provider: 04/03/24 20:51
Nursing documentation reviewed up to this point in time: agreed with
History of Present Illness
History of Present Illness:
Patient to ED s/p fall at home. 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 No visible evidence of trauma. Unwitnessed. Unknown head strike. Brought to ED via EMS for eval
Past History
Past History
ED Past Medical History: Cancer (prostate), HTN and Psychiatric (dementia)
Social History
Personal:
Living: with family
Family History
Family History: Other (noncontributory)
Review of Systems
Review of Systems
Allergies reviewed?: Yes
All Other Systems: ROS reviewed and negative except as documented in HPI and ROS
Constitutional: Reports no symptoms
EENT: Reports no symptoms
Respiratory: Reports no symptoms
Cardiac: Reports no symptoms
ABD/GI: Reports no symptoms
: Reports no symptoms
Musculoskeletal: Reports no symptoms
Skin: Reports other (laceration to posterior scalp)
Neurological: Reports no symptoms
Psychiatric: Reports no symptoms
Phy Exam
General Physical Exam
General Presentation: well appearing and no apparent distress
General age: appears stated age
General Skin: warm and dry
General Habitus: normal
General Mental: alert
General Hydration: appears well hydrated
Eye Exam
Eye Exam: PERRL, EOMI, cornea clear and other ( left conjunctivitis)
Conjunctival Changes: left: purulent discharge
Cardiovascular Exam
Cardiovascular Exam: regular rate/rhythm and no edema
Pulmonary Exam
Pulmonary Exam: lungs clear and no respiratory distress
Gastrointestinal Exam
Gastrointestinal Exam: normal bowel sounds, non tender and soft
Neurological Exam
Neurological Exam: alert, CN II-XII intact, no motor deficits and no sensory deficits
Musculoskeletal Exam
Musculoskeletal Exam: full ROM and neuro vasc intact
Skin Exam
Skin Exam: normal color, warm/dry and no rash
Psychiatric Exam
Psychiatric Exam: normal mood/affect
Course
Orders/Labs/Results
Orders:
Orders
04/03/24 21:19
CT Head W/o Iv Contrast Urgent
Comment:
Reason For Exam: fall
Cervical Spine wo Contrast CT [CT Cervical Spine W/o Iv Contr] Urgent
Comment:
Reason For Exam: fall
04/03/24 22:47
Urinalysis Reflex To Culture Urgent
Date Specimen was Collected: 04/03/24
Time Specimen was Collected: 22:46
Urine Microscopic Reflex Cult Urgent
Urine Culture Urgent
VIKRAM Source: U
Specimen Description:
Date Specimen was Collected: 04/03/24
Time Specimen was Collected: 22:46
04/03/24 23:04
Tobramycin 0.3% [Tobrex 0.3% Eye Drops] See Dose Instructions OPHTH NOW STA
04/03/24 23:22
Amoxicillin 875 mg/Clav 125 mg [Augmentin 875 mg/125 mg] 1 tablet PO NOW STA
Abnormal Lab Results
04/03/24
22:47
Ur Occult Blood Reflex 1+ A
(Negative)
Urine Nitrite (Reflex) Positive A
(Negative)
Leukocyte Esterase Rfl 2+ A
(Negative)
Urine RBC 11-15 A /HPF
(0-2)
Urine WBC (Reflex) 80-90 A /HPF
(0-5)
Urine Bacteria (Reflex) Moderate A
(Negative)
Vital Signs
Initial and Last Documented VS:
Initial Vital Signs
Temp Pulse Resp BP Pulse Ox
97.9 F 72 14 138/107 97
04/03/24 20:15 04/03/24 20:15 04/03/24 20:15 04/03/24 20:15 04/03/24 20:15
Last Documented Vital Signs
Temp Pulse Resp BP Pulse Ox
97.9 F 72 14 171/86 97
04/03/24 20:15 04/03/24 20:15 04/03/24 20:15 04/03/24 23:00 04/03/24 23:02
*Radiology
Radiology exam reviewed: radiology read reviewed
*Pulse Oximetry
Patient hypoxic: no
*Critical Care Note
Total Time (30-74mins, 75-104mins- exclusive of procedures): Not Applicable
Update Note
Update Note:
Patient to ED s/p0 unwitnessed fall at home. No visible signs of trauma. CT head, no evidence of bleeding or fracture. Moving all extremities equally. Left eye conjunctivitis noted. Placed on Tobramycin drops Q4hWA. UA reveals UTI. Started on
augmentin in dept. No evidence of sepsis. will discharge home, followup with PCP in AM
ED Attending Note
-
Portions of this chart may have been created with voice recognition software.� Occasional wrong word or��sound alike� substitutions may have occurred due to the inherent limitations of voice recognition software.
Discharge Plan
Departure
Patient Disposition: Home (Routine Discharge)
Date of Disposition: 04/03/24
Time of Disposition: 22:34
Patient with high blood pressure during this ER visit?: No
Condition: Good
Covid-19: Not Applicable
Discharge Problem:
Head injury
Instructions: Head Injury in Adults (DC), Preventing falls in adults
Prescriptions:
New
amoxicillin-pot clavulanate 875-125 mg tablet
1 tab PO BID Qty: 14 0RF
No Action
bicalutamide 50 mg Tablet
50 mg PO Q48H
Patient Comments:
06/11/21 PER PATIENT DAUGHTER HE WAS TAKING ONE WEEK ON ONE WEEK OFF
metoprolol succinate 100 mg tablet extended release 24 hr
100 mg PO DAILY
fluticasone propionate 50 mcg/actuation [place],Suspension
1 spray INTRANASAL BID
potassium citrate 15 mEq tablet extended release
15 meq PO BID@0800,1700
quetiapine 25 mg tablet
25 mg PO HS
vitamin B complex Tablet Extended Release
1 tab PO Q48H
donepezil 5 mg tablet
5 mg PO HS
famotidine 20 mg tablet
20 mg PO DAILYPRN PRN (Reason: gi)
mirabegron [Myrbetriq] 25 mg Tablet Extended Release 24 Hr
25 mg PO DAILY
calcium carb-mag ox-zinc gluc 333-133-5 mg Tablet
1 tab PO Q48H
doxycycline hyclate 100 mg Capsule
100 mg PO Q12 Qty: 20 0RF
Referrals:
Francisco Queen, [Family Provider] - Follow up in 2-3 days
Interventions
Interventions:
*General Assessment Last Done: 04/03/24 21:03
*Neglect/Abuse Screening Last Done: 04/04/24 00:08
ED- Fall Risk Assessment Last Done: 04/03/24 21:16
*ED COVID-19 Vaccine History Last Done: 04/03/24 21:03
*Nursing Disposition Last Done: 04/04/24 00:08
ED-Musculoskeletal Assessment Last Done: 04/03/24 21:03
ED- Neurological Assessment Last Done: 04/03/24 21:03
ED-Skin Assessment Last Done: 04/03/24 21:03
Discharge Date and Time
Discharge Date/Time: 04/04/24 00:09
Print Language: AZERI
== END 2024-04-04 00:09 | disposition home or self-care (01) ==
LOC: EMR 20:10
PROVIDERS: Nurse Practitioner; EMERGENCY PHYSICIAN Emergency Medicine; FAMILY PHYSICIAN Family Medicine
DX: S09.90XA Unspecified injury of head, initial encounter (principal); S01.01XA Laceration without foreign body of scalp, initial encounter; W19.XXXA Unspecified fall, initial encounter
CPT/HCPCS: 99284; 70450; 72125; 81003; 81015; 87086

== ENCOUNTER 2024-07-26 08:12 | Emergency (ER) | payer MEDICARE, BC, SELFPAY ==
[2024-07-26] VITALS (8 sets, daily range): BP systolic 147–185; BP diastolic 84–127
--- NOTE | 2024-07-26 08:45 | ED.GENMED ---
History of Present Illness
General
Chief Complaint: Fall
Source: patient and family
Exam Limitations: dementia
Time Seen by Provider: 07/26/24 08:15
Nursing documentation reviewed up to this point in time: agreed with
History of Present Illness
History of Present Illness:
83 y/o M with h/o dementia
from home
fell outside today
the past 2 days according to EMS who spoke with , pt has been hallucinating about horses; he has chronic indwelling foleyand takes prophylactic nitrofurantoin (uro is ddr. ruenes)
they presumed he had a uti
today he was insistent on lonny goutside; tried to stop him. he got dressed and was wandering the property and then fell onto the grass
pt couldn't get up, saw him on the ground and called 911
pt has headache, abdominal pain and R knee pain
no blood thinners
he has baseline dementia but is awake and alert and knows he is in the hospital
he denies remembering that he was talkin about horses yesterday
i soke with daughter on the phone who says that pt hallucinates and gts like this with UTI
his urine was checked last week but she doesn't think he was started on any other antibiotics
pt denies neck pain, cp, sob, vomiting.
Past History
Past History
ED Past Medical History: Cancer (prostate), HTN and Psychiatric (dementia)
Social History
Personal:
Living: with family
Family History
Family History: Other (noncontributory)
Phy Exam
Physical Exam
Physical Exam:
GENERAL: Alert , in no apparent distress
HEAD: NCAT
NECK: no midline tenderness, active ROM intact, no paraspinal muscle tenderness;
EYE: pupils equal and reactive, EOMs intact.
ENT: o/p clr, mmm. no hemotympanum
CARDIAC: Regular rate and rhythm, no edema
LUNGS: Clear breath sounds bilaterally, no acute respiratory distress, no wheezes/rales/rhonchi
ABDOMEN: Soft, without focal tenderness, no r/g, no cvat
NEUROLOGICAL: Alert and oriented x 2, no focal neuro deficits, CN intact, 5/5 strength, sensation intact
SKIN: Warm and dry,
MUSCULOSKELETAL: No edema, well perfused.
Right knee old bruising, slight tenderness, full range of motion
PSYCH: Normal and appropriate interaction. Dementia
Course
Orders/Labs/Results
Orders:
Orders
07/26/24 08:38
CT Chest/abd/pel W Iv Cont Urgent
Reason For Exam: fall outside, abdoinal pain
CT Head W/o Iv Contrast Urgent
Comment:
Reason For Exam: fall, hallucinating
07/26/24 08:39
Electrocardiogram (*1) Stat
Reason for Study: Other
Other Reason for Exam: neuro symptoms
EKG- Treatment ONCE
CR Knee- Right 4 Or More View* Urgent
Comment:
Reason For Exam: right knee pain, fall
07/26/24 08:53
Complete Blood Count/With Diff Urgent
Comprehensive Metabolic Panel Urgent
Troponin I Urgent
07/26/24 09:18
Urinalysis Reflex To Culture Urgent
Date Specimen was Collected: 07/26/24
Time Specimen was Collected: 09:17
Urine Microscopic Reflex Cult Urgent
Urine Culture Urgent
VIKRAM Source: U
Specimen Description:
Date Specimen was Collected: 07/26/24
Time Specimen was Collected: 09:17
07/26/24 12:44
Cefdinir [Omnicef] 300 mg PO NOW STA
07/26/24 12:51
CefTRIAXone [Rocephin] 2,000 mg IV NOW STA
Abnormal Lab Results
07/26/24 07/26/24
08:53 09:18
MCH 31.2 H pg
(27.0-31.0)
Chloride 108 H mmol/L
(98-107)
Glucose 105 H mg/dl
(70-99)
Ur Occult Blood Reflex 4+ A
(Negative)
Urine Nitrite (Reflex) Positive A
(Negative)
Leukocyte Esterase Rfl 3+ A
(Negative)
Urine WBC (Reflex) 70-80 A /HPF
(0-5)
Urine Bacteria (Reflex) Many A
(Negative)
Urine Albumin (Reflex) 3+ A
(Neg - Trace)
07/26/24 08:53
07/26/24 08:53
Vital Signs
Initial and Last Documented VS:
Initial Vital Signs
BP
162/84
07/26/24 08:19
Last Documented Vital Signs
Temp Pulse Resp BP Pulse Ox
36.7 C 70 18 147/127 96
07/26/24 08:20 07/26/24 08:20 07/26/24 08:20 07/26/24 14:00 07/26/24 14:15
MDM/Problems Addressed
Differential Diagnosis Includes:
uti, falls, traumatic injury
MDM/Problems Addressed:
83 y/o M
dementia but oritneted to place and person
fall this am after pt wandered outside
family thinks he has UTI because this happens with his UTIs
i spoke with him via gely dunbar with his daugher kassie who is point of contact
famly not at bedside
they said he was hallucinating last nght and then today insisted on walking outside and fell on grass
helped up by EMS
at his baslinee
Mild headache he says and mild abdominal discomfort, Mehta is draining cloudy yellow urine, it was last changed 2 weeks ago according to his daughter. Patient apparently takes Macrobid or Keflex prescriber Dr. Warner for prophylactic treatment for
UTI. They got his urine tested last week and she says it was not infected. He did not start having hallucination until yesterday. He seems at his baseline, no complaints, awake and alert, no signs of trauma other than a bruise on his right knee
He is afebrile, normal white count, urine is nitrate positive creatinine normal. CT of head shows no trauma, CT chest abdomen pelvis shows a stable nearly 2 cm renal stone, no hydro
This is an incidental finding which she has had before. I reviewed all culture showing Enterococcus and Pseudomonas which were sensitive to ceftriaxone. I discussed this with his daughter who wanted him to have a dose of ceftriaxone in the
hospital and then send him home on cefdinir. Patient was seen ambulating by himself without difficulty and seems steady. Family was offered for him to be admitted if they felt that his baseline confusion was a little bit challenging while he was
sick but they prefer to take him home. Initially they asked us to arrange transport but when the transport was taking too long his daughter came to pick him up
*Critical Care Note
Total Time (30-74mins, 75-104mins- exclusive of procedures): Not Applicable
ED Attending Note
-
Portions of this chart may have been created with voice recognition software.� Occasional wrong word or��sound alike� substitutions may have occurred due to the inherent limitations of voice recognition software.
Discharge Plan
Departure
Patient Disposition: Home (Routine Discharge)
Date of Disposition: 07/26/24
Time of Disposition: 13:42
Patient with high blood pressure during this ER visit?: Yes
Condition: Fair
Covid-19: Not Applicable
Discharge Problem:
UTI (urinary tract infection), Fall
Instructions: Urinary tract infection in adults - ED discharge instructions
Prescriptions:
New
cefdinir 300 mg capsule
300 mg PO BID Qty: 20 0RF
No Action
bicalutamide 50 mg Tablet
50 mg PO Q48H
Patient Comments:
06/11/21 PER PATIENT DAUGHTER HE WAS TAKING ONE WEEK ON ONE WEEK OFF
metoprolol succinate 100 mg tablet extended release 24 hr
100 mg PO DAILY
fluticasone propionate 50 mcg/actuation [place],Suspension
1 spray INTRANASAL BID
potassium citrate 15 mEq tablet extended release
15 meq PO BID@0800,1700
quetiapine 25 mg tablet
25 mg PO HS
vitamin B complex Tablet Extended Release
1 tab PO Q48H
donepezil 5 mg tablet
5 mg PO HS
famotidine 20 mg tablet
20 mg PO DAILYPRN PRN (Reason: gi)
mirabegron [Myrbetriq] 25 mg Tablet Extended Release 24 Hr
25 mg PO DAILY
calcium carb-mag ox-zinc gluc 333-133-5 mg Tablet
1 tab PO Q48H
doxycycline hyclate 100 mg Capsule
100 mg PO Q12 Qty: 20 0RF
amoxicillin-pot clavulanate 875-125 mg tablet
1 tab PO BID Qty: 14 0RF
Referrals:
Francisco Queen, DO [Family Provider] - Follow up in 2-3 days
Activity Restrictions/Additional Instructions:
Based off of blood work and CAT scans of his head, chest, abdomen, pelvis there is no signs of any traumatic findings. He does have a bladder infection. And we gave him a dose of IV ceftriaxone and will prescribe cefdinir twice a day for 10 days.
If he has another fall or seems even worse in terms of his confusion and you are at all concerned for his safety please have him return.
Interventions
Interventions:
*Risk Screen - Suicide Last Done: 07/26/24 08:20
*General Assessment Last Done: 07/26/24 08:20
*Neglect/Abuse Screening Last Done: 07/26/24 08:20
*ED COVID-19 Vaccine History Last Done: 07/26/24 08:20
*Nursing Disposition Last Done: 07/26/24 14:32
ED-Musculoskeletal Assessment Last Done: 07/26/24 08:20
ED- Neurological Assessment Last Done: 07/26/24 08:20
ED-Skin Assessment Last Done: 07/26/24 08:20
Discharge Date and Time
Discharge Date/Time: 07/26/24 14:33
Print Language: [id number]
[2024-07-26 09:10] LABS: % Basophils 0.6 % (0-2); % Eosinophils 3.9 % (0-6); % Immature Granulocytes 0.3 % (0-0.5); % Lymphocytes 27.5 % (20.5-51.1); % Monocytes 8.6 % (1.7-9.3); % Neutrophils 59.1 % (42.2-75.2); Absolute Eosinophils 0.3 10^3/uL (0-0.7); Absolute Lymphocytes 1.9 10^3/uL (1.2-3.4); Absolute Monocytes 0.6 10^3/uL (0.1-0.6); Absolute Neutrophils 4.1 10^3/uL (1.4-6.5); Hematocrit 42.8 % (39.0-52.0); Hemoglobin 14.8 g/dL (13.0-18.0); Mean Corp Hgb Conc. 34.6 g/dL (33.0-37.0); Mean Corpuscular Hgb 31.2 pg (27.0-31.0); Mean Corpuscular Volume 90.1 fL (80.0-94.0); Mean Platelet Volume 10.2 fL (7.4-10.4); Nucleated Red Blood Cells % 0 % (-); Platelet Count 161 10^3/uL (130-400); Red Blood Cell Count 4.75 10^6/uL (4.70-6.10); Red Cell Dist. Width 12.6 % (11.5-14.5); White Blood Cell Count 6.9 10^3/uL (4.8-10.8)
[2024-07-26 09:16] LABS: ALT (SGPT) 16 U/L (0-50); AST (SGOT) 24 U/L (17-59); Alkaline Phosphatase 69 U/L (38-126); Blood Urea Nitrogen 20 mg/dl (9-20); Calcium 9.1 mg/dl (8.4-10.2); Carbon Dioxide 25 mmol/L (22-30); Chloride 108 mmol/L (98-107); Glucose 105 mg/dl (70-99); Potassium 4.6 mmol/L (3.5-5.1); Sodium 140 mmol/L (135-145); Total Bilirubin 0.8 mg/dl (0.2-1.3); Total Protein 7.2 g/dl (6.3-8.2); eGFR > 60.00
[2024-07-26 09:24] LABS: Urine Albumin 3+ (Neg - Trace); Urine Bilirubin Negative (Negative); Urine Character Cloudy (Clear); Urine Color Yellow; Urine Glucose Negative (Negative); Urine Ketone Negative (Negative); Urine Leukocyte 3+ (Negative); Urine Nitrite Positive (Negative); Urine Occult Blood 4+ (Negative); Urine Urobilinogen Negative (Neg - 1+)
[2024-07-26 09:27] LABS: Troponin I < 0.012 ng/ml
[2024-07-26 10:09] LABS: Urine Squamous Cell 0-2 /LPF (Few)
[2024-07-26 10:10] LABS: Urine Bacteria Many (Negative); Urine Red Blood Cell 0-2 /HPF (0-2); Urine White Cell 70-80 /HPF (0-5)
[2024-07-26] MEDS: ROCEPHIN 2000 MG IV (13:01)
== END 2024-07-26 14:33 | disposition home or self-care (01) ==
LOC: EMR 08:12
PROVIDERS: Physician Assistant; EMERGENCY PHYSICIAN Emergency Medicine; FAMILY PHYSICIAN Family Medicine
DX: N39.0 Urinary tract infection, site not specified (principal); B95.2 Enterococcus as the cause of diseases classified elsewhere; B96.5 Pseudomonas (aeruginosa) (mallei) (pseudomallei) as the cause of diseases classified elsewhere; S80.01XA Contusion of right knee, initial encounter; W19.XXXA Unspecified fall, initial encounter; F03.92 Unspecified dementia, unspecified severity, with psychotic disturbance; N20.0 Calculus of kidney; I10 Essential (primary) hypertension; Z85.46 Personal history of malignant neoplasm of prostate; Z96.0 Presence of urogenital implants
CPT/HCPCS: 99285; 96374; 70450; 71260; 73564; 74177; 80053; 81003; 81015; 84484; 85025; 87077; 87086; 93005; Q9967